=== PATIENT | male | born 1980 | race Caucasian/White ===

== ENCOUNTER 2017-12-30 21:18 | Emergency (ER) | payer SELFPAY ==
[2017-12-30] MEDS ORDERED: DOXYCYCLINE 100 MG CAP PO ONE (21:44)
[2017-12-30] MEDS ORDERED: TETANUS & DIPHTHERIA TOX,ADULT 0.5 ML VIAL ONE (21:44)
[2017-12-30] MEDS ORDERED: LIDOCAINE 1% 20 ML MDV ONE (21:46)
--- NOTE | 2017-12-30 22:52 | EDPHYS ---
Physician Documentation [facility] Name: Alex Blankenship Age: 37 yrs Sex: Male : 1980 Arrival Date: 12/30/2017 Time: 21:22 Bed 14 Private MD: ED Physician Malcom Byrne HPI: 12/30 22:00 This 37 yrs old Male presents to ER via Ambulatory with complaints of Foreign pm1 Body - fish hook to hand. 22:00 The patient or guardian reports the patient has a suspected foreign body, Left index pm1 finger. The reported likely foreign body is a fishhook. Onset: The symptoms/episode began/occurred 10 hours prior to arrival. Current symptoms: pain, in the area of the foreign body. Treatment Prior to Arrival: none. The patient has not experienced similar symptoms in the past. Patient was off shore fishing and hooked his left finger. Patient was 90 miles off [place] so continued to fish. Presented to ER after returning to land. Patient without any numbness or tingling to left index finger. Historical: - Allergies: 21:28 PENICILLINS; lp1 - Home Meds: 21:28 None [Active]; lp1 - PMHx: 21:28 None; lp1 - PSHx: 21:28 None; lp1 - Immunization history:: Adult Immunizations up to date, Last tetanus immunization: up to date. - Social history:: Smoking status: Patient/guardian denies using tobacco. - Ebola Screening: : No symptoms or risks identified at this time. ROS: 22:00 Constitutional: Negative for fever, chills, and weight loss, Cardiovascular: Negative pm1 for chest pain, palpitations, and edema, Respiratory: Negative for shortness of breath, cough, wheezing, and pleuritic chest pain, Abdomen/GI: Negative for abdominal pain, nausea, vomiting, diarrhea, and constipation, Back: Negative for injury and pain. 22:00 Neuro: Negative for headache, weakness, numbness, tingling, and seizure. 22:00 MS/extremity: Positive for pain, of the left index finger, foreign body - fish hook . 22:00 Skin: Positive for Foreign body - fish hook left index finger. Exam: 22:00 Constitutional: This is a well developed, well nourished patient who is awake, alert, pm1 and in no acute distress. Head/Face: Normocephalic, atraumatic. Chest/axilla: Normal chest wall appearance and motion. Nontender with no deformity. No lesions are appreciated. Cardiovascular: Regular rate and rhythm with a normal S1 and S2. No gallops, murmurs, or rubs. Normal PMI, no JVD. No pulse deficits. Respiratory: Lungs have equal breath sounds bilaterally, clear to auscultation and percussion. No rales, rhonchi or wheezes noted. No increased work of breathing, no retractions or nasal flaring. Back: No spinal tenderness. No costovertebral tenderness. Full range of motion. 22:00 Musculoskeletal/extremity: Extremities: grossly normal except: puncture, swelling, Fish hook in left index finger. Vital Signs: 21:30 Weight 90.72 kg; Height 6 ft. 6 in. (198.12 cm); lp1 21:50 BP 142 / 96; Pulse 55; Resp 14; Temp 97.8; Pulse Ox 100% ; bp 22:34 BP 134 / 87; Pulse 50; Resp 16; Pulse Ox 100% ; bp 21:30 Body Mass Index 23.11 (90.72 kg, 198.12 cm) lp1 Procedures: 22:45 Foreign Body Removal: a fishhook, from the left index finger, by Skin and fish hook pm1 cleansed with Betadine prior to procedure. Pushed reji through skin and reji cut off. Fish hook backed out. After fishhook removed, irrigated copiously with NS with 14 gauge catheter in puncture wound. Dressinx4s were used to dress the wound, The patient tolerated the removal well. MDM: 21:26 Patient medically screened. pm1 22:45 ED course: After removal of fishhook, patient neurovascular status intact to left index pm1 finger. Patient able to flex and extend left index finger. 22:45 Special discussion: I discussed in detail with the patient the higher chance of wound pm1 infection based on his presenting history. Stressed importance for close follow up with hand surgeon . 22:50 Data reviewed: vital signs. Data interpreted: Pulse oximetry: on room air is 100 %. pm1 Interpretation: normal. Counseling: I had a detailed discussion with the patient and/or guardian regarding: the historical points, exam findings, and any diagnostic results supporting the discharge/admit diagnosis, radiology results, the need for outpatient follow up, a hand specialist, to return to the emergency department if symptoms worsen or persist or if there are any questions or concerns that arise at home. 12/30 21:29 Order name: Hand Left 3 View XRAY pm1 Administered Medications: 21:47 Drug: Tetanus-Diphtheria Toxoid Adult 0.5 ml {Air Battle Manager: [employer]. Exp: bp 05/02/2019. Lot #: [id number]. } Route: IM; Site: left deltoid; 21:47 Follow up: Response: No adverse reaction bp 21:47 Drug: Doxycycline 100 mg Route: PO; bp 21:47 Follow up: Response: No adverse reaction bp 22:33 Drug: Lidocaine (1 %) 20 ml {Note: by provider.} Volume: 20 ml; Route: Infiltration; bp 22:55 Drug: [place] 10 mg-325 mg 1 tabs Route: PO; bp 22:55 Follow up: Response: Medication administered at discharge. bp Disposition: 12/30/17 22:52 Discharged to Home. Impression: Puncture wound with foreign body of left hand - fish hook removed from 2nd left finger. - Condition is Stable. - Discharge Instructions: Fish Hook Removal, Puncture Wound. - Prescriptions for Tylenol- Codeine #3 300-30 mg Oral Tablet - take 2 tablets by ORAL route every 6 hours As needed; 20 tablet. Doxycycline Hyclate 100 mg Oral Tablet - take 1 tablet by ORAL route every 12 hours; 20 tablet. - Medication Reconciliation Form, Thank You Letter, Antibiotic Education, Prescription Opioid Use form. - Follow up: Emergency Department; When: As needed; Reason: Worsening of condition. Follow up: Ant Kemp MD; When: 2 - 3 days; Reason: Recheck today's complaints, Continuance of care, Re-evaluation by your physician. - Problem is new. - Symptoms have improved. Addendum: 01/03/2018 08:45 Co-signature as Attending Physician, Malcom Byrne MD I agree with the assessment and w a plan of care. Signatures: Dispatcher [employer] EDMS Shruthi Rutledge, RAYNA RN lp1 Joey Richardson, CRISIS THERAPIST CRISIS THERAPIST pm1 Malcom Byrne MD MD wa Peltier, Brian RN RN bp Corrections: (The following items were deleted from the chart) 12/30 22:53 22:52 12/30/2017 22:52 Discharged to Home. Impression: Puncture wound with foreign body pm1 of left hand - fish hook removed from 2nd left finger. Condition is Stable. Forms are Medication Reconciliation Form, Thank You Letter, Antibiotic Education, Prescription Opioid Use. Follow up: Emergency Department; When: As needed; Reason: Worsening of condition. Follow up: Private Physician; When: 2 - 3 days; Reason: Wound Recheck, Recheck today's complaints, Continuance of care, Re-evaluation by your physician. Problem is new. Symptoms have improved. pm1 23:01 22:53 12/30/2017 22:52 Discharged to Home. Impression: Puncture wound with foreign body bp of left hand - fish hook removed from 2nd left finger. Condition is Stable. Discharge Instructions: Fish Hook Removal, Puncture Wound. Prescriptions for Tylenol-Codeine #3 300-30 mg Oral Tablet - take 2 tablets by ORAL route every 6 hours As needed; 20 tablet, Doxycycline Hyclate 100 mg Oral Tablet - take 1 tablet by ORAL route every 12 hours; 20 tablet. and Forms are Medication Reconciliation Form, Thank You Letter, Antibiotic Education, Prescription Opioid Use. Follow up: Emergency Department; When: As needed; Reason: Worsening of condition. Follow up: Ant eKmp; When: 2 - 3 days; Reason: Recheck today's complaints, Continuance of care, Re-evaluation by your physician. Problem is new. Symptoms have improved. pm1
--- NOTE | 2017-12-30 22:52 | ER ---
Nurse's Notes [facility] Name: Alex Blankenship Age: 37 yrs Sex: Male : 1980 Arrival Date: 12/30/2017 Time: 21:22 Bed 14 Private MD: Diagnosis: Puncture wound with foreign body of left hand-fish hook removed from 2nd left finger Presentation: 12/30 21:26 Presenting complaint: Patient states: Fish hook in place to left first finger, states lp1 happened at 0930 [place]. Transition of care: patient was not received from another setting of care. Onset of symptoms was December 30, 2017 at 09:30. Risk Assessment: Do you want to hurt yourself or someone else? Patient reports no desire to harm self or others. Initial Sepsis Screen: Does the patient meet any 2 criteria? No. Patient's initial sepsis screen is negative. Does the patient have a suspected source of infection? No. Patient's initial sepsis screen is negative. Care prior to arrival: None. 21:26 Method Of Arrival: Ambulatory lp1 21:26 Acuity: DANE 4 lp1 Historical: - Allergies: 21:28 PENICILLINS; lp1 - Home Meds: 21:28 None [Active]; lp1 - PMHx: 21:28 None; lp1 - PSHx: 21:28 None; lp1 - Immunization history:: Adult Immunizations up to date, Last tetanus immunization: up to date. - Social history:: Smoking status: Patient/guardian denies using tobacco. - Ebola Screening: : No symptoms or risks identified at this time. Screenin:50 Abuse screen: Denies threats or abuse. Denies injuries from another. Nutritional bp screening: No deficits noted. Tuberculosis screening: No symptoms or risk factors identified. Fall Risk None identified. Assessment: 21:30 General: Appears in no apparent distress. comfortable, slender, Behavior is calm, bp cooperative, appropriate for age. Pain: Complains of pain in left middle finger. Neuro: Level of Consciousness is awake, alert, obeys commands, Oriented to person, place, time, situation, Appropriate for age. Cardiovascular: No deficits noted. Respiratory: Airway is patent Respiratory effort is even, unlabored, Respiratory pattern is regular, symmetrical. GI: No deficits noted. : No signs and/or symptoms were reported regarding the genitourinary system. EENT: No signs and/or symptoms were reported regarding the EENT system. Derm: No deficits noted. Musculoskeletal: Circulation, motion, and sensation intact. Range of motion: intact in all extremities. Injury Description: Foreign body is located left middle finger is FISH HOOK. 22:34 Reassessment: FB SUCCESSFULLY REMOVED BY PROVIDER. bp 22:55 Reassessment: PT D/C HOME AMBULATORY WITH FAMILY, DX WITH PUNCTURE WOUND WITH FB bp REMOVAL. Vital Signs: 21:30 Weight 90.72 kg; Height 6 ft. 6 in. (198.12 cm); lp1 21:50 BP 142 / 96; Pulse 55; Resp 14; Temp 97.8; Pulse Ox 100% ; bp 22:34 BP 134 / 87; Pulse 50; Resp 16; Pulse Ox 100% ; bp 21:30 Body Mass Index 23.11 (90.72 kg, 198.12 cm) lp1 ED Course: 21:22 Patient arrived in ED. al2 21:26 Joey Richardson NP is PHCP. pm1 21:26 Malcom Byrne MD is Attending Physician. pm1 21:27 Triage completed. lp1 21:27 Arm band placed on right wrist. lp1 21:40 Eriberto Pate RN is Primary Nurse. bp 21:50 Patient has correct armband on for positive identification. Bed in low position. Call bp light in reach. Side rails up X2. Adult w/ patient. 22:11 Hand Left 3 View XRAY In Process Unspecified. EDMS 22:35 Assist provider with foreign body removal of a fish hook from left 2ND FINGER using bp BOLT CUTTERS Set up for procedure. Performed by Joey Richardson INTERNET SITE DESIGNER Dressed with 4X4s, Patient tolerated well. Patient did not have IV access during this emergency room visit. 22:53 Ant Kemp MD is Referral Physician. pm1 Administered Medications: 21:47 Drug: Tetanus-Diphtheria Toxoid Adult 0.5 ml {Drywaller: [employer]. Exp: bp 05/02/2019. Lot #: [id number]. } Route: IM; Site: left deltoid; 21:47 Follow up: Response: No adverse reaction bp 21:47 Drug: Doxycycline 100 mg Route: PO; bp 21:47 Follow up: Response: No adverse reaction bp 22:33 Drug: Lidocaine (1 %) 20 ml {Note: by provider.} Volume: 20 ml; Route: Infiltration; bp 22:55 Drug: [place] 10 mg-325 mg 1 tabs Route: PO; bp 22:55 Follow up: Response: Medication administered at discharge. bp Outcome: 22:52 Discharge ordered by MD. pm1 23:00 Discharged to home ambulatory, with family. bp 23:00 Condition: stable 23:00 Discharge instructions given to patient, Instructed on discharge instructions, follow up and referral plans. medication usage, Demonstrated understanding of instructions, follow-up care, medications, Prescriptions given X 2. 23:01 Patient left the ED. bp Signatures: Dispatcher [employer] EDMS Shruthi Rutledge RN RN lp1 Joey Richardson, ZO INTERNET SITE DESIGNER pm1 Eriberto Pate RN RN Alicia Null
[2017-12-30] MEDS ORDERED: HYDROCODONE/APAP 10/325 TAB ONE (22:53)
--- NOTE | 2017-12-31 08:47 | RAD REPORT ---
EXAM DESCRIPTION: RAD - Hand Left 3 View - 12/30/2017 10:11 pm CLINICAL HISTORY: Foreign body COMPARISON: None. FINDINGS: A large fish hook is present in the ventral soft tissues of the second digit near the midd le phalanx and DIP joint. No bone involvement. The hook is relatively superficial and may well have m issed the flexor tendon. No other foreign body. IMPRESSION: Large fish hook in the ventral soft tissues near the second digit middle phalanx and DIP joint. No bone involvement. Fish hook is relatively superficial and may have missed the flexor tendon.
== END 2017-12-30 23:01 | disposition home or self-care (01) ==
LOC: ER 21:18
DX: S61.241A Puncture wound with foreign body of left index finger without damage to nail, initial encounter (principal); W26.8XXA Contact with other sharp object(s), not elsewhere classified, initial encounter; W45.8XXA Other foreign body or object entering through skin, initial encounter; Y93.89 Activity, other specified; Y92.89 Other specified places as the place of occurrence of the external cause; Y99.8 Other external cause status
CPT/HCPCS: 90714; 99284